=== PATIENT | male | born 1945 | race Caucasian/White ===

== ENCOUNTER 2025-07-20 09:00 | Outpatient (CLI) | payer MEDICARE, SELFPAY ==
--- OUTSIDE RECORDS SUMMARY | 2025-07-20 09:14 | XMS_ITS | Encounter Summary ---
Author Organization [facility] Address [address] [facility] [place] [address] Care Team Providers Care Inside Polisher Name Role Phone Unavailable Primary Care Provider Unavailabl e Encounter Details Date Type Department Care Team (Late st Contact Info) Description 09/20/2024 Lab Requisition [facility] - DermPath Lab [address] [facility], [place] [address] Itzel King MD [address] [facility] 3 [place] [address] Social History Tobacco Use Types Packs/Day Years Used Date Smoking Tobacco: Never Assessed Sex and Gender Information Value Date Recorded Sex Assigned at Not on file 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 Gender Identity Not on file Sexual Orientation Not on file documented as of this encounter Plan of Treatment Not on file documented as of this encounter Procedures Procedure Name Priority Date/Time Associated Diagnosis Comments DERMATOPATHOLOGY Routine 09/20/2024 9:34 AM ASSOCIATE documented in this encounter Results * DERMATOPATHOLOGY (09/20/2024 9:34 AM ASSOCIATE) Case Report Dermatopathology Report Case: [id number] Authorizing Provider: Itzel King MD Collected: 09/20/2024 09:34 AM Ordering Location: [facility] Physician [facility] - Received: 09/20/2024 03:44 PM DermPath Lab Pathologist: Diane Ball MD Specimens: A) - Skin, left forearm B) - Skin, right nasal bridge 11:58 AM ASSOCIATE DERMATOPATHOLOGY LABORATORY Final Diagnosis Specimen A. SKIN, left forearm: SQUAMOUS CELL CARCINOMA IN SITU, PRESENT AT THE BASE OF THE SPECIMEN (D04.62) (see microscopic description and comment) Specimen B. 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 The specimen consists of a shave biopsy measuring 6x6x1 mm. Jar 0. Specimen B: Received is one formalin filled container labeled with the patient's name and designated right nasal bridge. The specimen consists of a shave biopsy measuring 8x7x2 mm. Jar 0. 11:58 AM [facility] DERMATOPATHOLOGY LABORATORY Microscopic Description Specimen A. SKIN, left forearm: The epidermis shows parakeratosis, full thickness disorderly maturation of keratinocytes, mitoses at different levels, and dyskeratotic cells. The lesion extends to the base of the biopsy. COMMENT: An invasive squamous cell carcinoma cannot be ruled out. Specimen B. SKIN, right nasal bridge: Arising in the papillated epidermis and extending into the dermis there are irregularly shaped aggregates of keratinocytes showing evidence of premature cornification. 11:58 AM [facility] DERMATOPATHOLOGY LABORATORY Disclaimer An external and internal positive and negative controls are appropriate for the histochemical, immunohistochemical and immunofluorescence stain(s) in this case (if any), except where stated explicitly. The performance characteristics of the stain(s) cited in this report were developed and its performance characteristic determined by the Dermatopathology Laboratory at [facility], directed by Dr. Aaron Perry. These tests need not be, and therefore are not, approved by the [place] Food and Drug Administration. The tests are used for clinical purposes. Billing Codes Specimen Charges Stain Charges 97085 05915 1 1 4 11:58 AM [facility] DERMATOPATHOLOGY LABORATORY Embedded Images 4 11:58 AM [facility] DERMATOPATHOLOGY LABORATORY Pathology/Cytology TISSUE SPECIMEN FROM SKIN / Unknown 09/20/2024 9:34 AM ASSOCIATE 09/20/2024 3:44 PM ASSOCIATE Miscellaneous samples (specimen) TISSUE SPECIMEN FROM SKIN / Unknown 09/20/2024 9:34 AM ASSOCIATE 09/20/2024 3:44 PM ASSOCIATE us Itzel King MD LAB - PATHOLOGY/CYTOLOGY OR DERABLES Final Result DERMATOPATHOLOGY LABORATORY [facility] - Department of Dermatology [facility] [address] [place] [address], [address] Floor [address] [phone] documented in this encounter Visit Diagnoses Not on filedocumented in this encounter
--- OUTSIDE RECORDS SUMMARY | 2025-07-20 09:14 | XMS_ITS | Encounter Summary ---
Author Organization [facility] Address [address] [place] [address] Care Team Providers Care Bark Press Operator Name Role Phone Unavailable Primary Care Provider Unavailabl e Encounter Details Date Type Department Care Team (Late st Contact Info) Description 11/24/2018 Lab Requisition [facility] Care DermPath Lab [address] [facility], [place] [address] Hannah Hand DO [address] [facility] 3 [place] [address] Social History Tobacco Use Types Packs/Day Years Used Date Smoking Tobacco: Never Assessed Sex and Gender Information Value Date Recorded Sex Assigned at Not on file Legal Sex Male 5:57 PM DEVOPS Gender Identity Not on file Sexual Orientation Not on file documented as of this encounter Plan of Treatment Not on file documented as of this encounter Procedures Procedure Name Priority Date/Time Associated Diagnosis Comments DERMATOPATH TECHNICAL REPORT Routine 11/22/2018 12:00 AM DEVOPS documented in this encounter Results * DERMATOPATH TECHNICAL REPORT (11/22/2018 12:00 AM DEVOPS) Case Report Dermatopathology Report Case: [id number] Authorizing Provider: Hannah Hand DO Collected: 11/22/2018 12:00 AM Pathologist: Regi Perry MD Received: 11/24/2018 06:46 AM Specimen: Skin, left proximal FA 9 2:32 PM DEVOPS DERMATOPATHOLOGY LABORATORY Clinical History Biopsy proven SCC. Check margins. See [id number] 2:32 PM DEVOPS DERMATOPATHOLOGY LABORATORY Gross Description Specimen A: Received is one formalin filled container labeled with the patient's name and designated left proximal FA.The specimen consists of an ellipse measuring 99j67w6 mm and is oriented with the suture/notch at the 12 o'clock position not labeled on the requisition. The 12 to 6 o'clock margin is inked green. The 6 o'clock to 12 o'clock margin is inked black. The 12 o'clock tip is submitted in cassette 1. The 6 o'clock tip is submitted in cassette 2. The remainder of the ellipse is serially sectioned and submitted in cassettes 3-4. Jar 0. [facility] Dermatopathology Laboratory performed the technical component only. 2:32 PM [facility] DERMATOPATHOLOGY LABORATORY Embedded Images 2:32 PM [facility] DERMATOPATHOLOGY LABORATORY DISCLAIMER An external and internal positive and negative controls are appropriate for the histochemical, immunohistochemical and immunofluorescence stain(s) in this case (if any), except where stated explicitly. The performance characteristics of the stain(s) cited in this report were developed and its performance characteristic determined by the Dermatopathology Laboratory at [facility], directed by Dr. Aaron Perry. These tests need not be, and therefore are not, approved by the [place] Food and Drug Administration. The tests are used for clinical purposes. 2:32 PM [facility] DERMATOPATHOLOGY LABORATORY at 1432 DEVOPS Pathology/Cytolog y TISSUE SPECIMEN FROM SKIN / Unknown 11/22/2018 11/24/2018 6:46 AM DEVOPS us Hannah Hand DO LAB - PATHOLOGY/CYTOLOGY ORDERABLES Final Result DERMATOPATHOLOGY LABORATORY [facility] - Department of Dermatology [facility] [facility] 5th [place] [address], [facility] [phone] documented in this encounter Visit Diagnoses Not on filedocumented in this encounter
--- OUTSIDE RECORDS SUMMARY | 2025-07-20 09:14 | XMS_ITS | Encounter Summary ---
Author Organization [facility] Address [address] [facility] [place] [address] Care Team Providers Care Pigs Feet Cleaner Name Role Phone Unavailable Primary Care Provider Unavailabl e Encounter Details Date Type Department Care Team (Late st Contact Info) Description 07/27/2019 Lab Requisition [facility] DermPath Lab [address] [facility] [facility] [place] [address] Hannah Hand DO [address] [facility] 3 [place] [address] Social History Tobacco Use Types Packs/Day Years Used Date Smoking Tobacco: Never Assessed Sex and Gender Information Value Date Recorded Sex Assigned at Not on file 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 Gender Identity Not on file Sexual Orientation Not on file documented as of this encounter Plan of Treatment Not on file documented as of this encounter Procedures Procedure Name Priority Date/Time Associated Diagnosis Comments DERMATOPATHOLOGY Routine 07/26/2019 12:0 0 AM CDT documented in this encounter Results * DERMATOPATHOLOGY (07/26/2019 12:00 AM CDT) Case Report Dermatopathology Report Case: [id number] Authorizing Provider: Hannah Hand DO Collected: 07/26/2019 12:00 AM Ordering Location: [facility] DermPath Lab Received: 07/27/2019 12:28 PM Pathologist: Regi Perry MD Specimens: A) - Skin, right post neck B) - Skin, right nasal SW 9 12:01 PM CDT DERMATOPATHOLOGY LABORATORY Final Diagnosis Specimen A. 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 SKIN, right nasal SW: ACTINIC KERATOSIS, LICHENOID (L57.0) 12:01 PM T DERMATOPATHOLOGY LABORATORY at 1201 CDT Clinical History A: Nevus R/O atypia. B: R/O NMSC. 12:01 PM T DERMATOPATHOLOGY LABORATORY Gross Description Specimen A: Received is one formalin filled container labeled with the patient's name and designated right post neck. The specimen consists of a shave measuring 6f1q3oc. Jar 0. Specimen B: Received is one formalin filled container labeled with the patient's name and designated right nasal SW. The specimen consists of a shave measuring 8s7n3xi. Jar 0. 12:01 PM [facility] DERMATOPATHOLOGY LABORATORY Microscopic Description Specimen A. SKIN, right post neck: This is a compound nevus. There is melanin pigment in the stratum corneum. There is architectural disorder characterized by a lentiginous proliferation of melanocytes between irregular nevus nests of cells along the dermal epidermal junction. There is underlying fibroplasia of the papillary dermis. The intradermal component is bland in appearance and matures with depth. There is a lymphohistiocytic infiltrate within the dermis. (Compound Juan Luis's Nevus or Compound Dysplastic Nevus) Specimen B. SKIN, right nasal SW: There is focal parakeratosis. The lower half of the epidermis shows disorderly maturation of keratinocytes with nuclear pleomorphism. The dermis shows a band-like, chronic inflammatory infiltrate with occasional apoptotic keratinocytes and some basal vacuolar alteration. 12:01 PM T DERMATOPATHOLOGY LABORATORY Disclaimer An external and internal positive and negative controls are appropriate for the histochemical, immunohistochemical and immunofluorescence stain(s) in this case (if any), except where stated explicitly. The performance characteristics of the stain(s) cited in this report were developed and its performance characteristic determined by the Dermatopathology Laboratory at [facility], directed by Dr. Aaron Perry. These tests need not be, and therefore are not, approved by the [place] Food and Drug Administration. The tests are used for clinical purposes. Billing Codes Specimen Charges Stain Charges 32401 72752 1 1 12:01 PM CDT DERMATOPATHOLOGY LABORATORY Embedded Images 12:01 PM T DERMATOPATHOLOGY LABORATORY Pathology/Cytology TISSUE SPECIMEN FROM SKIN / Unknown 07/26/2019 07/27/2019 12:28 PM CDT Miscellaneous samples (specimen) TISSUE SPECIMEN FROM SKIN / Unknown 07/26/2019 07/27/2019 12:28 PM CDT us Hannah Hand DO LAB - PATHOLOGY/CYTOLOGY ORDERABLES Final Result DERMATOPATHOLOGY LABORATORY [facility] - Department of Dermatology [address] [place] [address], 5th Floor Lab B [address] [phone] documented in this encounter Visit Diagnoses Not on filedocumented in this encounter
--- OUTSIDE RECORDS SUMMARY | 2025-07-20 09:14 | XMS_ITS | Encounter Summary ---
Author Organization [facility] Address [address] [facility] [place] [address] Care Team Providers Care Voting Machine Repairer Name Role Phone Unavailable Primary Care Provider Unavailabl e Encounter Details Date Type Department Care Team (Late st Contact Info) Description 05/28/2025 Lab Requisition [facility] Physician [facility] - DermPath Lab [address] [facility], [place] [address] Hannah Hand DO [address] [facility] 3 [place] [address] Social History Tobacco Use Types Packs/Day Years Used Date Smoking Tobacco: Never Assessed Sex and Gender Information Value Date Recorded Sex Assigned at Not on file 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 Gender Identity Not on file Sexual Orientation Not on file documented as of this encounter Plan of Treatment Not on file documented as of this encounter Procedures Procedure Name Priority Date/Time Associated Diagnosis Comments DERMATOPATHOLOGY Routine 05/28/2025 2:31 PM CDT documented in this encounter Results * DERMATOPATHOLOGY (05/28/2025 2:31 PM CDT) Case Report Dermatopathology Report Case: [id number] Authorizing Provider: Hannah Hand DO Collected: 05/28/2025 02:31 PM Ordering Location: [facility] - Received: 05/29/2025 12:59 PM DermPath Lab Pathologist: Chanelle Larson MD Specimen: Skin, left flank 12:30 PM CDT DERMATOPATHOLOGY LABORATORY Final Diagnosis Specimen A. SKIN, left flank: COMPOUND MELANOCYTIC NEVUS (D22.5) 12:30 PM CDT DERMATOPATHOLOGY LABORATORY at 1230 CDT Clinical History Nevus; R/O Atypia 12:30 PM CDT DERMATOPATHOLOGY LABORATORY Gross Description Specimen A: Received is one formalin filled container labeled with the patient's name and designated left flank. The specimen consists of a shave biopsy measuring 12x7x1 mm. Jar 0. 12:30 PM CDT DERMATOPATHOLOGY LABORATORY Microscopic Description Specimen A. SKIN, left flank: There are nests of melanocytes at the dermal-epidermal junction and within the dermis. 12:30 PM CDT DERMATOPATHOLOGY LABORATORY Disclaimer An external and internal positive and negative controls are appropriate for the histochemical, immunohistochemical and immunofluorescence stain(s) in this case (if any), except where stated explicitly. The performance characteristics of the stain(s) cited in this report were developed and its performance characteristic determined by the Dermatopathology Laboratory at [facility], directed by Dr. Aaron Perry. These tests need not be, and therefore are not, approved by the [place] Food and Drug Administration. The tests are used for clinical purposes. Billing Codes Specimen Charges Stain Charges 41702 1 12:30 PM CDT DERMATOPATHOLOGY LABORATORY Embedded Images 12:30 PM CDT DERMATOPATHOLOGY LABORATORY Pathology/Cytolo gy TISSUE SPECIMEN FROM SKIN / Unknown 05/28/2025 2:31 PM CDT 05/29/2025 12:59 PM CDT us Hannah Hand DO LAB - PATHOLOGY/CYTOLOGY ORDERABLES Final Result DERMATOPATHOLOGY LABORATORY [facility] - Department of Dermatology [address]rd [place] [address], [facility] [phone] documented in this encounter Visit Diagnoses Not on filedocumented in this encounter
--- OUTSIDE RECORDS SUMMARY | 2025-07-20 09:14 | XMS_ITS | Encounter Summary ---
Author Organization [facility] Address [address] [facility] [place] [address] Care Team Providers Care Control Valve Mechanic Name Role Phone Unavailable Primary Care Provider Unavailabl e Encounter Details Date Type Department Care Team (Late st Contact Info) Description 10/19/2018 Lab Requisition [facility] Care DermPath Lab [address] [facility], [place] [address] Hannah Hand DO [address] [facility] 3 [place] [address] Social History Tobacco Use Types Packs/Day Years Used Date Smoking Tobacco: Never Assessed Sex and Gender Information Value Date Recorded Sex Assigned at Not on file 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 Gender Identity Not on file Sexual Orientation Not on file documented as of this encounter Plan of Treatment Not on file documented as of this encounter Procedures Procedure Name Priority Date/Time Associated Diagnosis Comments DERMATOPATH TECHNICAL REPORT Routine 10/18/2018 12:00 AM CHANNELER INSOLE documented in this encounter Results * DERMATOPATH TECHNICAL REPORT (10/18/2018 12:00 AM CHANNELER INSOLE) Case Report Dermatopathology Report Case: [id number] Authorizing Provider: Hannah Hand DO Collected: 10/18/2018 12:00 AM Pathologist: Chanelle Larson MD Received: 10/19/2018 07:06 AM Specimen: Skin, left prox fa 9 12:26 PM CHANNELER INSOLE DERMATOPATHOLOGY LABORATORY Clinical History R/O SCC, growing, KA, non healing. 9 12:26 PM CHANNELER INSOLE DERMATOPATHOLOGY LABORATORY Gross Description Specimen A: Received is one formalin filled container labeled with the patient's name and designated left prox fa. The specimen consists of a shave biopsy measuring 38p28x6qg, bisected. Jar 0+. [facility] Dermatopathology Laboratory performed the technical component only. 12:26 PM [facility] DERMATOPATHOLOGY LABORATORY Embedded Images 12:26 PM [facility] DERMATOPATHOLOGY LABORATORY DISCLAIMER An external and internal positive and negative controls are appropriate for the histochemical, immunohistochemical and immunofluorescence stain(s) in this case (if any), except where stated explicitly. The performance characteristics of the stain(s) cited in this report were developed and its performance characteristic determined by the Dermatopathology Laboratory at [facility]. These tests need not be, and therefore are not, approved by the [place] Food and Drug Administration. The tests are used for clinical purposes. 12:26 PM [facility] DERMATOPATHOLOGY LABORATORY at 1226 CHANNELER INSOLE Pathology/Cytolog y TISSUE SPECIMEN FROM SKIN / Unknown 10/18/2018 10/19/2018 7:06 AM CHANNELER INSOLE us Hannah Hand DO LAB - PATHOLOGY/CYTOLOGY ORDERABLES Final Result DERMATOPATHOLOGY LABORATORY [facility] - Department of Dermatology [address] [facility], [address]th [place] [address], [facility] [phone] documented in this encounter Visit Diagnoses Not on filedocumented in this encounter
--- OUTSIDE RECORDS SUMMARY | 2025-07-20 09:14 | XMS_ITS | Clinical Summary ---
Author Organization [facility] Address [address] [facility] [place] [address] Care Team Providers Care Semiconductor Wafers Saw Operator Name Role Phone Unavailable Primary Care Provider Unavailabl e Source Comments [facility],non-owned Affiliates and Associated Physician Practices is amultiple site organization consisting of ambulatory clinics and hospital sitesin [place], [place]. This disclosure is being madepursuant to the Care Everywhere program and may not contain all information available regarding this patient. Last updated 18.[facility] Encounters Date Type Department Care Team Description 05/28/[address] 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 Gender Identity Not on file Sexual Orientation Not on file Plan of Treatment Health Maintenance Due Date Last Done Comments DTAP/TDAP/TD VACCINES (1 - Tdap) 1965 PNEUMOCOCCAL VACCINE 50+ (1 of 1 - PCV) 1996 ZOSTER VACCINE (1 of 2) 1996 Respiratory Syncytial Virus (RSV) Vaccine Pt: or over 60 yrs (1 - 1-dose 75+ series) 2021 DEPRESSION SCREENING 10/11/2024 MEDICARE AWV CALENDAR YEAR 2024 COVID-19 VACCINE (1 - 2023-2 5 season) 2025 INFLUENZA VACCINE (#1) 2025 HEPATITIS B VACCINE Aged Out No longe r eligible based on patient's age to complete this topic HIB VACCINE Aged Out No longer eligi ble based on patient's age to complete this topic HPV VACCINE Aged Out No longer eligi ble based on patient's age to complete this topic MENINGOCOCCAL (Group B) VACC INE SHARED DECISION-MAKING Aged Out No longer eligibl e based on patient's age to complete this topic MENINGOCOCCAL GROUPS A/C/Y/W VACCINE Aged Out No longer eligible b ased on patient's age to complete this topic Procedures Procedure Name Priority Date/Time Associated Diagnosis Comments DERMATOPATHOLOGY Routine 05/28/2025 2:31 PM CDT from Last 3 Months Results * DERMATOPATHOLOGY (05/28/2025 2:31 PM CDT) Case Report Dermatopathology Report Case: [id number] Authorizing Provider: Hannah Hand DO Collected: 05/28/2025 02:31 PM Ordering Location: [facility] - Received: 05/29/2025 12:59 PM DermPath Lab [...] characteristic determined by the Dermatopathology Laboratory at [facility], directed by Dr. Aaron Perry. These tests need not be, and therefore are not, approved by the [place] Food and Drug Administration. The tests are used for clinical purposes. Billing Codes Specimen Charges Stain Charges 69694 1 5 12:30 PM CDT DERMATOPATHOLOGY LABORATORY Embedded Images 5 12:30 PM CDT DERMATOPATHOLOGY LABORATORY Pathology/Cytolo gy TISSUE SPECIMEN FROM SKIN / Unknown 05/28/2025 2:31 PM CDT 05/29/2025 12:59 PM CDT us Hannah Hand DO LAB - PATHOLOGY/CYTOLOGY ORDERABLES Final Result DERMATOPATHOLOGY LABORATORY [facility] - Department of Dermatology [address], [address] [phone] from Last 3 Months Insurance AET[employer] AETNA MEDICARE ADV
== END 2025-07-20 09:01 | disposition home or self-care (01) ==
LOC: ANHAUDIO 09:01
PROVIDERS: PCP Family Medicine; Visit Provider Family Medicine
DX: H90.3 Sensorineural hearing loss, bilateral (principal)
CPT/HCPCS: 92557; 92567

== ENCOUNTER 2025-09-18 14:09 | Emergency (ER) | payer MEDICARE, SELFPAY ==
[2025-09-18 14:31] VITALS: BP 163/65; PULSE 64; RESP 16; TEMP 36.3; O2SAT 99
[2025-09-18 15:51] VITALS: BP 158/94; PULSE 65; RESP 16; O2SAT 97
--- OUTSIDE RECORDS SUMMARY | 2025-09-18 18:54 | XMS_ITS | Encounter Summary ---
Author Organization [facility] Address [address] [place] [address] Care Team Providers Care Office Manager Name Role Phone Unavailable Primary Care Provider Unavailabl e Encounter Details Date Type Department Care Team (Late st Contact Info) Description 07/27/2019 Lab Requisition [facility] DermPath Lab [address] [facility], [facility] [place] [address] Hannah Hand DO [address] [facility] 3 [place] [address] Social History Tobacco Use Types Packs/Day Years Used Date Smoking Tobacco: Never Assessed Sex and Gender Information Value Date Recorded Sex Assigned at Not on file 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 Gender Identity Not on file Sexual Orientation Not on file documented as of this encounter Plan of Treatment Not on file documented as of this encounter Procedures Procedure Name Priority Date/Time Associated Diagnosis Comments DERMATOPATHOLOGY Routine 07/26/2019 12:0 0 AM CDT documented in this encounter Results * DERMATOPATHOLOGY (07/26/2019 12:00 AM CDT) Case Report Dermatopathology Report Case: [id number] Authorizing Provider: Hannah Hand DO Collected: 07/26/2019 12:00 AM Ordering Location: [facility] DermPath Lab Received: 07/27/2019 12:28 PM Pathologist: [...] The specimen consists of a shave measuring [id number]. Jar 0. Specimen B: Received is one formalin filled container labeled with the patient's name and designated right nasal SW. The specimen consists of a shave measuring 9s1p9qu. Jar 0. 12:01 PM [facility] DERMATOPATHOLOGY LABORATORY Microscopic Description Specimen A. SKIN, [...] characteristic determined by the Dermatopathology Laboratory at [facility], directed by Dr. Aaron Perry. These tests need not be, and therefore are not, approved by the [place] Food and Drug Administration. The tests are used for clinical purposes. Billing Codes Specimen Charges Stain Charges 19802 84072 1 1 12:01 PM CDT DERMATOPATHOLOGY LABORATORY Embedded Images 12:01 PM T DERMATOPATHOLOGY LABORATORY Pathology/Cytology TISSUE SPECIMEN FROM SKIN / Unknown 07/26/2019 07/27/2019 12:28 PM CDT Miscellaneous samples (specimen) TISSUE SPECIMEN FROM SKIN / Unknown 07/26/2019 07/27/2019 12:28 PM CDT us Hannah Hand DO LAB - PATHOLOGY/CYTOLOGY ORDERABLES Final Result DERMATOPATHOLOGY LABORATORY [facility] - Department of Dermatology [address] [place] [address], 5th Floor Lab B [address] [phone] documented in this encounter Visit Diagnoses Not on filedocumented in this encounter
--- OUTSIDE RECORDS SUMMARY | 2025-09-18 18:54 | XMS_ITS | Encounter Summary ---
Author Organization [facility] Address [address] [place] [address] Care Team Providers Care Squeak Rattle And Leak Repairer Name Role Phone Unavailable Primary Care Provider Unavailabl e Encounter Details Date Type Department Care Team (Late st Contact Info) Description 11/24/2018 Lab Requisition [facility] Care DermPath Lab [address] [facility], [place] [address] Hannah Hnad DO [address] [facility] 3 [place] [address] Social History Tobacco Use Types Packs/Day Years Used Date Smoking Tobacco: Never Assessed Sex and Gender Information Value Date Recorded Sex Assigned at Not on file Legal Sex Male 5:57 PM CREATIVE PERFUMER Gender Identity Not on file Sexual Orientation Not on file documented as of this encounter Plan of Treatment Not on file documented as of this encounter Procedures Procedure Name Priority Date/Time Associated Diagnosis Comments DERMATOPATH TECHNICAL REPORT Routine 11/22/2018 12:00 AM CREATIVE PERFUMER documented in this encounter Results * DERMATOPATH TECHNICAL REPORT (11/22/2018 12:00 AM CREATIVE PERFUMER) Case Report Dermatopathology Report Case: [id number] Authorizing Provider: Hannah Hand DO Collected: 11/22/2018 12:00 AM Pathologist: Regi Perry MD Received: 11/24/2018 06:46 AM Specimen: Skin, left proximal FA 9 2:32 PM CREATIVE PERFUMER DERMATOPATHOLOGY LABORATORY Clinical History Biopsy proven SCC. Check margins. See [id number] 2:32 PM CREATIVE PERFUMER DERMATOPATHOLOGY LABORATORY Gross Description Specimen A: Received is one formalin filled container labeled with the patient's name and designated left proximal FA.The specimen consists of an ellipse measuring 84t32g7 mm and is oriented with the suture/notch [...] and submitted in cassettes 3-4. Jar 0. [facility] Dermatopathology Laboratory performed the technical component only. 2:32 PM [facility] DERMATOPATHOLOGY LABORATORY Embedded Images 2:32 PM [facility] DERMATOPATHOLOGY LABORATORY DISCLAIMER An external and internal positive and negative controls are appropriate for the histochemical, immunohistochemical and immunofluorescence stain(s) in this case (if any), except where stated explicitly. The performance characteristics of the stain(s) cited in this report were developed and its performance characteristic determined by the Dermatopathology Laboratory at [facility], directed by Dr. Aaron Perry. These tests need not be, and therefore are not, approved by the [place] Food and Drug Administration. The tests are used for clinical purposes. 2:32 PM [facility] DERMATOPATHOLOGY LABORATORY at [address]32 CREATIVE PERFUMER Pathology/Cytolog y TISSUE SPECIMEN FROM SKIN / Unknown 11/22/2018 11/24/2018 6:46 AM CREATIVE PERFUMER us Hannah Hand DO LAB - PATHOLOGY/CYTOLOGY ORDERABLES Final Result DERMATOPATHOLOGY LABORATORY [facility] - Department of Dermatology [facility] [facility] 5th [place] [address], [facility] [phone] documented in this encounter Visit Diagnoses Not on filedocumented in this encounter
--- OUTSIDE RECORDS SUMMARY | 2025-09-18 18:54 | XMS_ITS | Encounter Summary ---
Author Organization [facility] Address [address] [facility] [place] [address] Care Team Providers Care Valet Service Attendant Name Role Phone Unavailable Primary Care Provider Unavailabl e Encounter Details Date Type Department Care Team (Late st Contact Info) Description 05/28/2025 Lab Requisition [facility] Physician [facility] - DermPath Lab [address] [facility], [place] [address] Hannah Hand DO [address] [facility] 3 [place] [address] Social History Tobacco Use Types Packs/Day Years Used Date Smoking Tobacco: Never Assessed Sex and Gender Information Value Date Recorded Sex Assigned at Not on file 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 Gender Identity Not on file Sexual Orientation Not on file documented as of this encounter Plan of Treatment Not on file documented as of this encounter Procedures Procedure Name Priority Date/Time Associated Diagnosis Comments DERMATOPATHOLOGY Routine 05/28/2025 2:31 PM CDT documented in this encounter Results * DERMATOPATHOLOGY (05/28/2025 2:31 PM CDT) Case Report Dermatopathology Report Case: [id number] Authorizing Provider: Hannah Hand DO Collected: 05/28/2025 02:31 PM Ordering Location: [facility] - Received: 05/29/2025 12:59 PM DermPath Lab [...] characteristic determined by the Dermatopathology Laboratory at [facility], directed by Dr. Aaron Perry. These tests need not be, and therefore are not, approved by the [place] Food and Drug Administration. The tests are used for clinical purposes. Billing Codes Specimen Charges Stain Charges 00172 1 12:30 PM CDT DERMATOPATHOLOGY LABORATORY Embedded Images 12:30 PM CDT DERMATOPATHOLOGY LABORATORY Pathology/Cytolo gy TISSUE SPECIMEN FROM SKIN / Unknown 05/28/2025 2:31 PM CDT 05/29/2025 12:59 PM CDT us Hannah Hand DO LAB - PATHOLOGY/CYTOLOGY ORDERABLES Final Result DERMATOPATHOLOGY LABORATORY [facility] - Department of Dermatology [address], [address]rd [place] [address], [facility] [phone] documented in this encounter Visit Diagnoses Not on filedocumented in this encounter
--- OUTSIDE RECORDS SUMMARY | 2025-09-18 18:54 | XMS_ITS | Clinical Summary ---
Author Organization [facility] Address [address] [facility] [address] [place] [address] Care Team Providers Care Drencher Name Role Phone Unavailable Primary Care Provider Unavailabl e Source Comments [facility],non-owned Affiliates and Associated Physician Practices is amultiple site organization consisting of ambulatory clinics and hospital sitesin [place], [place], [place] and [place]. This disclosure is being madepursuant to the Care Everywhere program and may not contain all information available regarding this patient. 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
--- OUTSIDE RECORDS SUMMARY | 2025-09-18 18:54 | XMS_ITS | Encounter Summary ---
Author Organization [facility] Address [address] [facility] [place] [address] Care Team Providers Care Ring Facer Name Role Phone Unavailable Primary Care Provider Unavailabl e Encounter Details Date Type Department Care Team (Late st Contact Info) Description 10/19/2018 Lab Requisition [facility] Care DermPath Lab [address] [facility], [place] [address] Hannah Hand DO [address] [facility] 3 [place] [address] Social History Tobacco Use Types Packs/Day Years Used Date Smoking Tobacco: Never Assessed Sex and Gender Information Value Date Recorded Sex Assigned at Not on file Legal Sex Male 5:57 PM BENEFITS ADMINISTRATOR Gender Identity Not on file Sexual Orientation Not on file documented as of this encounter Plan of Treatment Not on file documented as of this encounter Procedures Procedure Name Priority Date/Time Associated Diagnosis Comments DERMATOPATH TECHNICAL REPORT Routine 10/18/2018 12:00 AM BENEFITS ADMINISTRATOR documented in this encounter Results * DERMATOPATH TECHNICAL REPORT (10/18/2018 12:00 AM BENEFITS ADMINISTRATOR) Case Report Dermatopathology Report Case: [id number] Authorizing Provider: Hannah Hand DO Collected: 10/18/2018 12:00 AM Pathologist: Chanelle Larson MD Received: 10/19/2018 07:06 AM Specimen: Skin, left prox fa 9 12:26 PM BENEFITS ADMINISTRATOR DERMATOPATHOLOGY LABORATORY Clinical History R/O SCC, growing, KA, non healing. 9 12:26 PM BENEFITS ADMINISTRATOR DERMATOPATHOLOGY LABORATORY Gross Description Specimen A: Received is one formalin filled container labeled with the patient's name and designated left prox fa. The specimen consists of a shave biopsy measuring 32o41m3yp, bisected. Jar 0+. [facility] Dermatopathology Laboratory performed the technical component only. 12:26 PM [facility] DERMATOPATHOLOGY LABORATORY Embedded Images 12:26 PM [facility] DERMATOPATHOLOGY LABORATORY DISCLAIMER An external and internal positive and negative controls are appropriate for the histochemical, immunohistochemical and immunofluorescence stain(s) in this case (if any), except where stated explicitly. The performance characteristics of the stain(s) cited in this report were developed and its performance characteristic determined by the Dermatopathology Laboratory at [facility]. These tests need not be, and therefore are not, approved by the [place] Food and Drug Administration. The tests are used for clinical purposes. 12:26 PM [facility] DERMATOPATHOLOGY LABORATORY at 1226 BENEFITS ADMINISTRATOR Pathology/Cytolog y TISSUE SPECIMEN FROM SKIN / Unknown 10/18/2018 10/19/2018 7:06 AM BENEFITS ADMINISTRATOR us Hannah Hand DO LAB - PATHOLOGY/CYTOLOGY ORDERABLES Final Result DERMATOPATHOLOGY LABORATORY [facility] - Department of Dermatology [address] [facility], 5th [place] [address], [facility] [phone] documented in this encounter Visit Diagnoses Not on filedocumented in this encounter
--- OUTSIDE RECORDS SUMMARY | 2025-09-18 18:54 | XMS_ITS | Encounter Summary ---
Author Organization [facility] Address [address] [place] [address] Care Team Providers Care Slag Worker Name Role Phone Unavailable Primary Care Provider Unavailabl e Encounter Details Date Type Department Care Team (Late st Contact Info) Description 09/20/2024 Lab Requisition [facility] - DermPath Lab [address] [facility], [place] [address] Itzel King MD [address] [facility] 3 [place] [address] Social History Tobacco Use Types Packs/Day Years Used Date Smoking Tobacco: Never Assessed Sex and Gender Information Value Date Recorded Sex Assigned at Not on file Legal Sex Male 5:57 PM SPINDLE SETTER Gender Identity Not on file Sexual Orientation Not on file documented as of this encounter Plan of Treatment Not on file documented as of this encounter Procedures Procedure Name Priority Date/Time Associated Diagnosis Comments DERMATOPATHOLOGY Routine 09/20/2024 9:34 AM SPINDLE SETTER documented in this encounter Results * DERMATOPATHOLOGY (09/20/2024 9:34 AM SPINDLE SETTER) Case Report Dermatopathology Report Case: [id number] Authorizing Provider: Itzel King MD Collected: 09/20/2024 09:34 AM Ordering Location: [facility] Physician [facility] - Received: 09/20/2024 03:44 PM DermPath Lab Pathologist: Diane Ball MD Specimens: A) - Skin, left forearm B) - Skin, right nasal bridge 11:58 AM SPINDLE SETTER DERMATOPATHOLOGY LABORATORY Final Diagnosis Specimen A. SKIN, left forearm: SQUAMOUS CELL CARCINOMA IN SITU, PRESENT AT THE BASE OF THE SPECIMEN (D04.62) (see microscopic description and comment) Specimen B. 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 Jar 0. 11:58 AM [facility] DERMATOPATHOLOGY LABORATORY Microscopic Description Specimen A. [...] showing evidence of premature cornification. 11:58 AM [facility] DERMATOPATHOLOGY LABORATORY Disclaimer An external and internal positive and negative controls are appropriate for the histochemical, immunohistochemical and immunofluorescence stain(s) in this case (if any), except where stated explicitly. The performance characteristics of the stain(s) cited in this report were developed and its performance characteristic determined by the Dermatopathology Laboratory at [facility], directed by Dr. Aaron Perry. These tests need not be, and therefore are not, approved by the [place] Food and Drug Administration. The tests are used for clinical purposes. Billing Codes Specimen Charges Stain Charges 28717 92009 1 1 4 11:58 AM [facility] DERMATOPATHOLOGY LABORATORY Embedded Images 4 11:58 AM [facility] DERMATOPATHOLOGY LABORATORY Pathology/Cytology TISSUE SPECIMEN FROM SKIN / Unknown 09/20/2024 9:34 AM SPINDLE SETTER 09/20/2024 3:44 PM SPINDLE SETTER Miscellaneous samples (specimen) TISSUE SPECIMEN FROM SKIN / Unknown 09/20/2024 9:34 AM SPINDLE SETTER 09/20/2024 3:44 PM SPINDLE SETTER us Itzel King MD LAB - PATHOLOGY/CYTOLOGY OR DERABLES Final Result DERMATOPATHOLOGY LABORATORY [facility] - Department of Dermatology [facility] Medicine [address] [place] [address], [address]rd Floor [address] [phone] documented in this encounter Visit Diagnoses Not on filedocumented in this encounter
== END 2025-09-18 16:25 | disposition left against medical advice (07) ==
PROVIDERS: PCP Family Medicine
DX: R42 Dizziness and giddiness (principal)
CPT/HCPCS: 99199

== ENCOUNTER 2025-09-20 16:18 | Emergency (ER) | payer MEDICARE, SELFPAY ==
[2025-09-20] VITALS (10 sets, daily range): BP systolic 146–175; BP diastolic 76–99; PULSE 53–104; RESP 14–22; TEMP 36.6–36.9; O2SAT 95–100
--- NOTE | ~2025-09-20 | XR_ITS ---
EXAMINATION: XR chest 2V DATE: 09/20/2025 20:41 INDICATION: Dizziness. TECHNIQUE: Frontal and lateral views of the chest were obtained. COMPARISON: None. FINDINGS: Heart size is upper normal. Atherosclerotic aorta. Lungs are free of acute process. IMPRESSION: 1. No acute pulmonary findings. Reviewed, dictated and finalized at location T. 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
--- NOTE | 2025-09-20 19:30 | ECG_ITS ---
Test Date: 2025-09-20 19:38:02 Measurements Intervals [place] Rate: 71 P: 58 AL: 190 QRS: -42 QRSD: 102 T: 91 QT: 380 QTc: 415 Interpretive Statements SINUS RHYTHM LEFT AXIS DEVIATION ANTEROSEPTAL INFARCT, AGE INDETERMINATE BORDERLINE ST-T WAVE ABNORMALITY- HIGH LATERAL LEADS ABNORMAL ECG No previous ECG available for comparison Electronically Signed On 09-20-2025 20:41:08 SPAGHETTI MACHINE OPERATOR by Rancho Jones D.O.
[2025-09-20 21:15] LABS: Hematocrit 50.5 % (42.0-52.0); Hemoglobin 17.3 g/dL (14.0-18.0); Immature Granulocyte Percent A 1.2 % (0-0.5); Lymphocytes Absolute Auto 1.23 K/mm3 (0.9-3.2); Mean Corpuscular HGB Conc 34.3 g/dl (32-36); Mean Corpuscular Hemoglobin 30.4 pg (26-34); Mean Corpuscular Volume 88.8 fl (80-100); Nucleated Red Blood Cells Absolute Auto 0.000 K/mm3 (0.0-0.012); Nucleated Red Blood Cells Perc 0.0 % (0.0-0.2); Platelet Count Result 209 k/mm3 (150-375); Red Blood Count 5.69 M/mm3 (4.6-6.20); White Blood Count 8.3 K/mm3 (4.5-10.0)
[2025-09-20 21:24] LABS: INR 1.1; Prothrombin Time 14.0 Seconds (11.1-14.7)
[2025-09-20 21:25] LABS: Alanine Aminotransferase 59 U/L (6-50); Albumin Level 4.3 g/dL (3.5-5.1); Alkaline Phosphatase 75 U/L (38-126); Anion Gap 7 mmol/L (4-12); Aspartate Amino Transferase 39 U/L (17-59); Bilirubin,Total 0.9 mg/dL (0.2-1.3); Blood Urea Nitrogen 21 mg/dL (9-20); Calcium 9.3 mg/dL (8.4-10.2); Carbon Dioxide 25 mmol/L (22-30); Chloride 105 mmol/L (98-107); Estimated CRCL calculation 73 ml/min; Estimated Glomerular Filt Rate > 60; Glucose 100 mg/dL (65-110); Lipase 126 U/L (23-300); Partial Thromboplastin Time 31.4 Seconds (22.3-36.8); Potassium 4.2 mmol/L (3.4-5.0); Sodium 137 mmol/L (137-145); Total Protein 7.6 g/dL (6.3-8.2)
[2025-09-20 21:37] LABS: Troponin I < 0.012 ng/mL (0.000-0.034)
--- OUTSIDE RECORDS SUMMARY | 2025-09-20 21:43 | XMS_ITS | Encounter Summary ---
Author Organization [facility] Address [address] [place] [address] Care Team Providers Care Compensation Manager Name Role Phone Unavailable Primary Care Provider Unavailabl e Encounter Details Date Type Department Care Team (Late st Contact Info) Description 10/19/2018 Lab Requisition [facility] Care DermPath Lab [address] [facility], [place] [address] Hannah Hand DO [address] [facility] 3 DE[place] [address] Social History Tobacco Use Types Packs/Day Years Used Date Smoking Tobacco: Never Assessed Sex and Gender Information Value Date Recorded Sex Assigned at Not on file Legal Sex Male 5:57 PM DOPE MAINTENANCE WORKER Gender Identity Not on file Sexual Orientation Not on file documented as of this encounter Plan of Treatment Not on file documented as of this encounter Procedures Procedure Name Priority Date/Time Associated Diagnosis Comments DERMATOPATH TECHNICAL REPORT Routine 10/18/2018 12:00 AM DOPE MAINTENANCE WORKER documented in this encounter Results * DERMATOPATH TECHNICAL REPORT (10/18/2018 12:00 AM DOPE MAINTENANCE WORKER) Case Report Dermatopathology Report Case: [id number] Authorizing Provider: Hannah Hand DO Collected: 10/18/2018 12:00 AM Pathologist: Chanelle Larson MD Received: 10/19/2018 07:06 AM Specimen: Skin, left prox fa 9 12:26 PM DOPE MAINTENANCE WORKER DERMATOPATHOLOGY LABORATORY Clinical History R/O SCC, growing, KA, non healing. 9 12:26 PM DOPE MAINTENANCE WORKER DERMATOPATHOLOGY LABORATORY Gross Description Specimen A: Received is one formalin filled container labeled with the patient's name and designated left prox fa. The specimen consists of a shave biopsy measuring [id number], bisected. Jar 0+. [facility] Dermatopathology Laboratory performed the technical component only. 12:26 PM [facility] DERMATOPATHOLOGY LABORATORY Embedded Images 12:26 PM [facility] DERMATOPATHOLOGY LABORATORY DISCLAIMER An external and internal positive and negative controls are appropriate for the histochemical, immunohistochemical and immunofluorescence stain(s) in this case (if any), except where stated explicitly. The performance characteristics of the stain(s) cited in this report were developed and its performance characteristic determined by the Dermatopathology Laboratory at [facility]. These tests need not be, and therefore are not, approved by the [place] Food and Drug Administration. The tests are used for clinical purposes. 12:26 PM [facility] DERMATOPATHOLOGY LABORATORY at 1226 DOPE MAINTENANCE WORKER Pathology/Cytolog y TISSUE SPECIMEN FROM SKIN / Unknown 10/18/2018 10/19/2018 7:06 AM DOPE MAINTENANCE WORKER us Hannah Hand DO LAB - PATHOLOGY/CYTOLOGY ORDERABLES Final Result DERMATOPATHOLOGY LABORATORY [facility] - Department of Dermatology [address] [facility], 5th [place] [address], [facility] [phone] documented in this encounter Visit Diagnoses Not on filedocumented in this encounter
--- OUTSIDE RECORDS SUMMARY | 2025-09-20 21:43 | XMS_ITS | Encounter Summary ---
Author Organization [facility] Address [address] [facility] [place] [address] Care Team Providers Care Ui Engineer Name Role Phone Unavailable Primary Care Provider Unavailabl e Encounter Details Date Type Department Care Team (Late st Contact Info) Description 09/20/2024 Lab Requisition [facility] Physician Group - DermPath Lab [address] [facility], [place] [address] Itzel King MD [address] [facility] 3 [place] [address] Social History Tobacco Use Types Packs/Day Years Used Date Smoking Tobacco: Never Assessed Sex and Gender Information Value Date Recorded Sex Assigned at Not on file Legal Sex Male 5:57 PM WIRE TESTER Gender Identity Not on file Sexual Orientation Not on file documented as of this encounter Plan of Treatment Not on file documented as of this encounter Procedures Procedure Name Priority Date/Time Associated Diagnosis Comments DERMATOPATHOLOGY Routine 09/20/2024 9:34 AM WIRE TESTER documented in this encounter Results * DERMATOPATHOLOGY (09/20/2024 9:34 AM WIRE TESTER) Case Report Dermatopathology Report Case: [id number] Authorizing Provider: Itzel King MD Collected: 09/20/2024 09:34 AM Ordering Location: [facility] Physician [facility] - Received: 09/20/2024 03:44 PM DermPath Lab Pathologist: Diane Ball MD Specimens: A) - Skin, left forearm B) - Skin, right nasal bridge 11:58 AM WIRE TESTER DERMATOPATHOLOGY LABORATORY Final Diagnosis Specimen A. SKIN, left forearm: SQUAMOUS CELL CARCINOMA IN SITU, PRESENT AT THE BASE OF THE SPECIMEN (D04.62) (see microscopic description and comment) Specimen B. 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 Jar 0. 11:58 AM [facility] DERMATOPATHOLOGY LABORATORY Microscopic Description Specimen [...] showing evidence of premature cornification. 11:58 AM [facility] DERMATOPATHOLOGY LABORATORY Disclaimer An external and internal positive and negative controls are appropriate for the histochemical, immunohistochemical and immunofluorescence stain(s) in this case (if any), except where stated explicitly. The performance characteristics of the stain(s) cited in this report were developed and its performance characteristic determined by the Dermatopathology Laboratory at [facility], directed by Dr. Aaron Perry. These tests need not be, and therefore are not, approved by the [place] Food and Drug Administration. The tests are used for clinical purposes. Billing Codes Specimen Charges Stain Charges 07597 09929 1 1 4 11:58 AM [facility] DERMATOPATHOLOGY LABORATORY Embedded Images 4 11:58 AM [facility] DERMATOPATHOLOGY LABORATORY Pathology/Cytology TISSUE SPECIMEN FROM SKIN / Unknown 09/20/2024 9:34 AM WIRE TESTER 09/20/2024 3:44 PM WIRE TESTER Miscellaneous samples (specimen) TISSUE SPECIMEN FROM SKIN / Unknown 09/20/2024 9:34 AM WIRE TESTER 09/20/2024 3:44 PM WIRE TESTER us Itzel King MD LAB - PATHOLOGY/CYTOLOGY OR DERABLES Final Result DERMATOPATHOLOGY LABORATORY [facility] - Department of Dermatology [facility] Medicine [address] [place] [address], [address] [phone] documented in this encounter Visit Diagnoses Not on filedocumented in this encounter
--- OUTSIDE RECORDS SUMMARY | 2025-09-20 21:43 | XMS_ITS | Encounter Summary ---
Author Organization [facility] Address [address] [facility] [place] [address] Care Team Providers Care Explosive Ordnance Handler Name Role Phone Unavailable Primary Care Provider Unavailabl e Encounter Details Date Type Department Care Team (Late st Contact Info) Description 05/28/2025 Lab Requisition [facility] Physician [facility] - DermPath Lab [address] [facility] [place] [id number] Hannah Hand DO [address] [facility] [address] [place] [address] Social History Tobacco Use Types Packs/Day Years Used Date Smoking Tobacco: Never Assessed Sex and Gender Information Value Date Recorded Sex Assigned at Not on file 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 Gender Identity Not on file Sexual Orientation Not on file documented as of this encounter Plan of Treatment Not on file documented as of this encounter Procedures Procedure Name Priority Date/Time Associated Diagnosis Comments DERMATOPATHOLOGY Routine 05/28/2025 2:31 PM CDT documented in this encounter Results * DERMATOPATHOLOGY (05/28/2025 2:31 PM CDT) Case Report Dermatopathology Report Case: [id number] Authorizing Provider: Hannah Hand DO Collected: 05/28/2025 02:31 PM Ordering Location: [facility] - Received: 05/29/2025 12:59 PM DermPath [...] characteristic determined by the Dermatopathology Laboratory at [facility], directed by Dr. Aaron Perry. These tests need not be, and therefore are not, approved by the [place] Food and Drug Administration. The tests are used for clinical purposes. Billing Codes Specimen Charges Stain Charges 60423 1 12:30 PM CDT DERMATOPATHOLOGY LABORATORY Embedded Images 12:30 PM CDT DERMATOPATHOLOGY LABORATORY Pathology/Cytolo gy TISSUE SPECIMEN FROM SKIN / Unknown 05/28/2025 2:31 PM CDT 05/29/2025 12:59 PM CDT us Hannah Hand DO LAB - PATHOLOGY/CYTOLOGY ORDERABLES Final Result DERMATOPATHOLOGY LABORATORY [facility] - Department of Dermatology [address] [place] [address], [facility] [phone] documented in this encounter Visit Diagnoses Not on filedocumented in this encounter
--- OUTSIDE RECORDS SUMMARY | 2025-09-20 21:43 | XMS_ITS | Clinical Summary ---
Author Organization [facility] Address [address] [place] [address] Care Team Providers Care Winder Helper Name Role Phone Unavailable Primary Care Provider Unavailabl e Source Comments [facility],non-owned Affiliates and Associated Physician Practices is amultiple site organization consisting of ambulatory clinics and hospital sitesin [place]. This disclosure is being madepursuant to the Care Everywhere program and may not contain all information available regarding this patient. 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
--- OUTSIDE RECORDS SUMMARY | 2025-09-20 21:43 | XMS_ITS | Encounter Summary ---
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 Hand Name Role Phone Unavailable Primary Care Provider Unavailabl e Encounter Details Date Type Department Care Team (Late st Contact Info) Description 07/27/2019 Lab Requisition [facility] DermPath Lab [address] [facility] [facility] [place] [address] Hannah Hand DO [address] [facility] [address] [place] [address] Social History Tobacco Use Types Packs/Day Years Used Date Smoking Tobacco: Never Assessed Sex and Gender Information Value Date Recorded Sex Assigned at Not on file 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 Gender Identity Not on file Sexual Orientation Not on file documented as of this encounter Plan of Treatment Not on file documented as of this encounter Procedures Procedure Name Priority Date/Time Associated Diagnosis Comments DERMATOPATHOLOGY Routine 07/26/2019 12:0 0 AM CDT documented in this encounter Results * DERMATOPATHOLOGY (07/26/2019 12:00 AM CDT) Case Report Dermatopathology Report Case: [id number] Authorizing Provider: Hannah Hand DO Collected: 07/26/2019 12:00 AM Ordering Location: [facility] DermPath Lab Received: 07/27/2019 12:28 PM [...] The specimen consists of a shave measuring [id number]. Jar 0. Specimen B: Received is one formalin filled container labeled with the patient's name and designated right nasal SW. The specimen consists of a shave measuring [id number]. Jar 0. 12:01 PM [facility] DERMATOPATHOLOGY LABORATORY Microscopic Description Specimen A. SKIN, [...] characteristic determined by the Dermatopathology Laboratory at [facility], directed by Dr. Aaron Perry. These tests need not be, and therefore are not, approved by the [place] Food and Drug Administration. The tests are used for clinical purposes. Billing Codes Specimen Charges Stain Charges 98145 17694 1 1 12:01 PM CDT DERMATOPATHOLOGY LABORATORY Embedded Images 12:01 PM T DERMATOPATHOLOGY LABORATORY Pathology/Cytology TISSUE SPECIMEN FROM SKIN / Unknown 07/26/2019 07/27/2019 12:28 PM CDT Miscellaneous samples (specimen) TISSUE SPECIMEN FROM SKIN / Unknown 07/26/2019 07/27/2019 12:28 PM CDT us Hannah Hand DO LAB - PATHOLOGY/CYTOLOGY ORDERABLES Final Result DERMATOPATHOLOGY LABORATORY [facility] - Department of Dermatology [address] [place] [address], 5th Floor Lab [address] [phone] documented in this encounter Visit Diagnoses Not on filedocumented in this encounter
--- OUTSIDE RECORDS SUMMARY | 2025-09-20 21:43 | XMS_ITS | Encounter Summary ---
Author Organization [facility] Address [address] [facility] [place] [address] Care Team Providers Care Shipping Services Sales Representative Name Role Phone Unavailable Primary Care Provider Unavailabl e Encounter Details Date Type Department Care Team (Late st Contact Info) Description 11/24/2018 Lab Requisition [facility] Care DermPath Lab [address] [facility] [place] [address] Hannah Hand DO [address] [facility] [address] [place] [address] Social History Tobacco Use Types Packs/Day Years Used Date Smoking Tobacco: Never Assessed Sex and Gender Information Value Date Recorded Sex Assigned at Not on file 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 Gender Identity Not on file Sexual Orientation Not on file documented as of this encounter Plan of Treatment Not on file documented as of this encounter Procedures Procedure Name Priority Date/Time Associated Diagnosis Comments DERMATOPATH TECHNICAL REPORT Routine 11/22/2018 12:00 AM MOBILE APPLICATION TESTER documented in this encounter Results * DERMATOPATH TECHNICAL REPORT (11/22/2018 12:00 AM MOBILE APPLICATION TESTER) Case Report Dermatopathology Report Case: [id number] Authorizing Provider: Hannah Hand DO Collected: 11/22/2018 12:00 AM Pathologist: Regi Perry MD Received: 11/24/2018 06:46 AM Specimen: Skin, left proximal FA 9 2:32 PM MOBILE APPLICATION TESTER DERMATOPATHOLOGY LABORATORY Clinical History Biopsy proven SCC. Check margins. See [id number] 2:32 PM MOBILE APPLICATION TESTER DERMATOPATHOLOGY LABORATORY Gross Description Specimen A: Received is one formalin filled container labeled with the patient's name and designated left proximal FA.The specimen consists of an ellipse measuring [id number] mm and is oriented with the suture/notch [...] and submitted in cassettes 3-4. Jar 0. [facility] Dermatopathology Laboratory performed the technical component only. 2:32 PM [facility] DERMATOPATHOLOGY LABORATORY Embedded Images 2:32 PM [facility] DERMATOPATHOLOGY LABORATORY DISCLAIMER An external and internal positive and negative controls are appropriate for the histochemical, immunohistochemical and immunofluorescence stain(s) in this case (if any), except where stated explicitly. The performance characteristics of the stain(s) cited in this report were developed and its performance characteristic determined by the Dermatopathology Laboratory at [facility], directed by Dr. Aaron Perry. These tests need not be, and therefore are not, approved by the [place] Food and Drug Administration. The tests are used for clinical purposes. 2:32 PM [facility] DERMATOPATHOLOGY LABORATORY at [address]32 MOBILE APPLICATION TESTER Pathology/Cytolog y TISSUE SPECIMEN FROM SKIN / Unknown 11/22/2018 11/24/2018 6:46 AM MOBILE APPLICATION TESTER us Hannah Hand DO LAB - PATHOLOGY/CYTOLOGY ORDERABLES Final Result DERMATOPATHOLOGY LABORATORY [facility] - Department of Dermatology [facility] [facility] 5th [place] [address], [facility] [phone] documented in this encounter Visit Diagnoses Not on filedocumented in this encounter
--- NOTE | 2025-09-20 22:29 | ED.DIZZY ---
HPI - Dizziness General Chief Complaint: Dizziness Stated Complaint: dizziness Time Seen by Provider: 09/20/25 21:34 History of Present Illness HPI Narrative: This is a 80-year-old male with history of insomnia who presents to the ED for dizziness. Patient states for the past week he has been having intermittent dizziness with a headache. He called his PCP about this as he had episodes similar to this about a year ago that improved meclizine he was started on the meclizine. This was helping until today when he had worsening symptoms. He checked his blood pressure at [facility] and it was 190s/100s prompting him to go to Urgent Care but he was referred here given his blood pressure being so high. The patient reports that his symptoms have slightly improved. He does note a fullness feeling in his left ear. Related Data Home Medications ?Medication ?Instructions ?Recorded ?Confirmed ?Last Taken ?Type vitamins A,C,T-upah-jpeirc 4,296 1 cap PO ONCE 02/13/21 04/18/25 Unknown History mcg-226 mg-90 mg capsule (PreserVision AREDS) Allergies Allergy/AdvReac Type Severity Reaction Status Date / Time No Known Allergies Allergy Verified 09/20/25 21:57 Review of Systems Review of Systems: Gen.: Denies fevers or chills Eyes: Denies eye pain or visual change ENT: Denies congestion Respiratory: Denies shortness of breath or cough CV: Denies chest pain or palpitations GI: Denies abdominal pain nausea, emesis or diarrhea denies burning, urgency, frequency or hematuria Musculoskeletal: Denies back pain or muscle pain Neuro: As per HPI Skin: Denies rash Except as documented, all other systems reviewed and negative [facility] Past Medical History Medical History Hernia Hx of skin malignancy Surgical History Surgical History Status post surgical removal of malignant neoplasm of skin H/O bilateral cataract extraction Family History Family History Father Heart disease Social History Social History Smoking status: Never smoker Second hand tobacco smoke exposure: No Alcohol intake: current Drinks per week: 3 Substance use: never Substance use type: does not use Lack of Transportation: No Lack of Food: Never True Current Housing: I Have Housing Concerned About Future Housing: No Difficulty Paying Gas/Electric Bills: No Difficulty Paying for Meds: No Currently Unemployed: No Education: Master's Degree or Higher Difficulty w/ Childcare or Family Care: No Living arrangements: with family Occupation/Education: retired Gender identity (if verbalized by the patient): Male Agree to blood products: Yes Course Vital Signs Vital signs: Vital Signs Temperature 97.8 F 09/20/25 16:20 Pulse Rate 104 H 09/20/25 16:20 Respiratory Rate 18 09/20/25 16:20 Blood Pressure 175/84 H 09/20/25 16:20 Pulse Oximetry 100 09/20/25 16:20 Oxygen Delivery Room Air 09/20/25 16:20 Temperature 97.8 F 09/20/25 21:09 Pulse Rate 58 L 09/20/25 23:31 Respiratory Rate 17 09/20/25 23:31 Blood Pressure 167/88 H 09/20/25 23:31 Pulse Oximetry 98 09/20/25 23:31 Oxygen Delivery Room Air 09/20/25 16:20 MDM MDM Narrative Medical decision making narrative: 80-year-old male Presenting for dizziness. On initial evaluation patient was in no acute distress afebrile, hemodynamic stable. Differentials include but are not limited to: ACS electrolyte abnormality, BPPV, cerumen impaction, acute otitis media Notable exam findings: Cerumen impaction left greater than right, nonfocal neuro exam I personally reviewed the patient's lab result. Notable lab findings: CBC and CMP without significant abnormalities. I personally reviewed the patient's images and interpret as follows: Chest x-ray: Normal cardiac silhouette, no consolidations, no pleural effusions, no pulmonary vascular congestion I personally reviewed the patient's EKGs: Normal sinus rhythm rate of 71, left axis deviation, intervals, no acute ST changes, T-wave inversions in 1 and aVL Patient's your nose were irrigated and after completion of this, he had complete resolution of his symptoms. Suspect that a cerumen impaction was causing his symptoms. He was hypertensive as high as 170/1 0s which is apparently new for him. He was advised follow-up with his PCP regarding potential treatment for this. Patient was agreeable to this plan. Given strict return precautions. Differential Diagnosis Differential Diagnosis: ACS electrolyte abnormality, BPPV, cerumen impaction, acute otitis media Lab Data [facility] Lab Attestation statement: I personally reviewed the patient's lab results. 09/20/25 21:07 09/20/25 21:07 Labs: Lab Results 09/20/25 Range/Units 21:07 WBC 8.3 (4.5-10.0) K/mm3 RBC 5.69 (4.6-6.20) M/mm3 Hgb 17.3 (14.0-18.0) g/dL Hct 50.5 (42.0-52.0) % MCV 88.8 (80-100) fl MCH 30.4 (26-34) pg MCHC 34.3 (32-36) g/dl RDW 13.1 (11.5-14.5) % Plt Count 209 (150-375) k/mm3 MPV 8.9 (7.4-10.4) fl Immature Gran % (Auto) 1.2 H (0-0.5) % Neut % (Auto) 77.6 H (45.5-73.1) % Lymph % (Auto) 14.9 L (18.3-44.2) % [place] % (Auto) 5.4 (2.6-8.5) % Eos % (Auto) 0.5 (0-4.4) % Baso % (Auto) 0.4 (0.2-1.2) % Lymph # (Auto) 1.23 (0.9-3.2) K/mm3 [place] # (Auto) 0.5 (0.1-0.6) K/mm3 Eos # (Auto) 0.0 (0-0.3) K/mm3 Baso # (Auto) 0.0 (0.0-0.1) K/mm3 Abs Immat Gran (auto) 0.10 H (0.00-0.031) K/mm3 Absolute Neuts (auto) 6.4 (1.3-6.7) K/mm3 Absolute Nucleated RBC 0.000 (0.0-0.012) K/mm3 Nucleated RBC % 0.0 (0.0-0.2) % PT 14.0 (11.1-14.7) Seconds INR 1.1 APTT 31.4 (22.3-36.8) Seconds Sodium 137 (137-145) mmol/L Potassium 4.2 (3.4-5.0) mmol/L Chloride 105 (98-107) mmol/L Carbon Dioxide 25 (22-30) mmol/L Anion Gap 7 (4-12) mmol/L BUN 21 H (9-20) mg/dL Creatinine 0.83 (0.7-1.3) mg/dL Estim Creat Clear Calc 73 ml/min Estimated GFR > 60 (59 - ) Glucose 100 (65-110) mg/dL Calcium 9.3 (8.4-10.2) mg/dL Total Bilirubin 0.9 (0.2-1.3) mg/dL AST 39 (17-59) U/L ALT 59 H (6-50) U/L Alkaline Phosphatase 75 (38-126) U/L Troponin I < 0.012 (0.000-0.034) ng/mL Total Protein 7.6 (6.3-8.2) g/dL Albumin 4.3 (3.5-5.1) g/dL Lipase 126 (23-300) U/L Imaging Data Attestation: I personally reviewed and interpreted this imaging study as follows: Radiologist's impression: ITS Impressions Chest X-Ray 09/20/25 20:42 IMPRESSION: 1. No acute pulmonary findings. Discharge Plan Discharge Clinical Impression: Cerumen impaction, Vertigo, Hypertension Patient Disposition: Home Condition: Stable Instructions: Antibiotic Form, Benign Paroxysmal Positional Vertigo (ED) Additional Instructions: Follow up with your pcp in the next week for reevaluation. Return to the ED for new or worsening symptoms. Patient Language: Tanzanian Prescriptions: No Action PreserVision AREDS 14,320-226-200 hkyo-nd-kwle capsule 1 cap PO ONCE amoxicillin-pot clavulanate 875-125 mg tablet 1 tablet PO BID Qty: 20 0RF fluticasone propionate 50 mcg/actuation spray,suspension 1 spray intranasal BID Qty: 16 5RF Rx Instructions: administer into each nostril trazodone 100 mg tablet See Rx Instructions PO QHS Qty: 90 1RF Rx Instructions: orally every day at bedtime; Start with 0.5 tab hs for 1 week then increase to 1 tab hs meclizine 25 mg tablet 25 mg PO TID PRN (Reason: dizziness) Qty: 30 0RF Rx Instructions: May cause drowsiness. prednisone 10 mg tablet 10 mg PO DIRECTED Qty: 30 0RF Rx Instructions: Take 5 tabs daily PO for 2 days, 4 tabs daily PO for 2 days, 3 tabs daily PO for 2 days, 2 tabs daily PO for 2 days, 1 tab daily PO for 2 days. Follow-up/Referrals: Miles,MD Michelle [Primary Care Provider, Family Practice]
== END 2025-09-20 23:35 | disposition home or self-care (01) ==
PROVIDERS: Emergency Provider Student in an Organized Health Care Education/Training Program; PCP Family Medicine
DX: H61.23 Impacted cerumen, bilateral (principal); R42 Dizziness and giddiness; I10 Essential (primary) hypertension
CPT/HCPCS: 36415; 69209; 71046; 80053; 83690; 84484; 85025; 85610; 85730; 93005; 99284